=== PATIENT | female | born 1955 | race Caucasian/White ===

== ENCOUNTER 2020-08-12 17:57 | Emergency (ER) | payer BC, OTHER ==
[2020-08-12] MEDS ORDERED: Phenazopyridine 95 MG Tab PO ONE (17:58)
[2020-08-12] MEDS ORDERED: Ciprofloxacin 500 MG Tab PO ONE (17:58)
--- NOTE | 2020-08-12 18:20 | EDM.PDOC ---
ED HPI GENERAL MEDICAL PROBLEM - General Chief Complaint: Genitourinary Problem Stated Complaint: UTI Time Seen by Provider: 08/12/20 18:15 Source of Information: Reports: Patient History Limitations: Reports: No Limitations - History of Present Illness INITIAL COMMENTS - FREE TEXT/NARRATIVE: ED with c/o increased urinary frequency and burning since Friday, No fever, slight chills tonight. Diabetic. - Related Data Allergies Allergy/AdvReac Type Severity Reaction Status Date / Time tape adhesive Allergy Rash Uncoded 08/12/20 18:12 Home Meds: Home Meds metFORMIN [Glucophage] 500 mg PO BIDM 07/08/13 [History] Empagliflozin [Jardiance] 25 mg PO DAILY 08/12/20 [History] Glimepiride 1 mg PO DAILY 08/12/20 [History] Levothyroxine Sodium [Levothyroxine] 75 mcg PO DAILY 08/12/20 [History] Losartan Potassium 25 mg PO DAILY 08/12/20 [History] Pravastatin Sodium 20 mg PO DAILY 08/12/20 [History] dilTIAZem HCL [Diltiazem ER] 180 mg PO DAILY 08/12/20 [History] ED ROS GENERAL - Review of Systems Review Of Systems: Comprehensive ROS is negative, except as noted in HPI. ED EXAM, RENAL/ - Physical Exam Exam: See Below Exam Limited By: No Limitations General Appearance: Alert, No Apparent Distress Eye Exam: Bilateral Eye: EOMI Ears: Normal External Exam Nose: Normal Inspection Throat/Mouth: Normal Inspection Head: Atraumatic, Normocephalic Respiratory/Chest: No Respiratory Distress, Lungs Clear, Normal Breath Sounds Cardiovascular: Normal Peripheral Pulses, Regular Rate, Rhythm GI/Abdominal: Normal Bowel Sounds, Soft Back Exam: No: CVA Tenderness (L), CVA Tenderness (R) Extremities: Normal Inspection Neurological: Alert, Oriented, Normal Cognition Psychiatric: Normal Affect, Normal Mood Skin Exam: Warm, Dry, Intact, Normal Color Course - Vital Signs Last Recorded V/S: Last Vital Signs Temp 97.7 F 08/12/20 18:12 Pulse 90 08/12/20 18:12 Resp 16 08/12/20 18:12 BP 190/80 H 08/12/20 18:12 Pulse Ox 98 08/12/20 18:12 - Orders/Labs/Meds Orders: Active Orders 24 hr Category Date Time Status CULTURE URINE [RM] Stat Lab 08/12/20 18:05 Received Labs: Laboratory Tests 08/12/20 Range/Units 18:05 Urine Color Yellow (YELLOW) Urine Appearance Slightly cloudy (CLEAR) Urine pH 5.5 (5.0-9.0) Ur Specific [place] <= 1.005 (1.005-1.030) Urine Protein Negative (NEGATIVE) Urine Glucose (UA) >=1000 H (NEGATIVE) Urine Ketones Negative (NEGATIVE) Urine Occult Blood Moderate H (NEGATIVE) Urine Nitrite Positive H (NEGATIVE) Urine Bilirubin Negative (NEGATIVE) Urine Urobilinogen 0.2 (0.2-1.0) mg/dL Ur Leukocyte Esterase Small H (NEGATIVE) Urine RBC 0-5 /HPF Urine WBC >100 H (0-5/HPF) /HPF Ur Epithelial Cells Occasional (NOT SEEN) /HPF Departure - Departure Time of Disposition: 18:25 Disposition: Home, Self-Care 01 Condition: Good Clinical Impression: UTI, Urinary tract infectious disease - Discharge Information *PRESCRIPTION DRUG MONITORING PROGRAM REVIEWED*: No *COPY OF PRESCRIPTION DRUG MONITORING REPORT IN PATIENT HAJA: No Instructions: Urinary Tract Infection, Adult, [id number] Forms: ED Department Discharge Additional Instructions: cipro 500mg one twice daily x 5 days pyridium 200mg every 8 hours as needed for bladder spasm increase fluids clinic follow up recheck next week Sepsis Event Note (ED) - Focused Exam Vital Signs: Vital Signs Temp Pulse Resp BP Pulse Ox 08/12/20 18:12 97.7 F 90 16 190/80 H 98 - My Orders Last 24 Hours: My Active Orders 08/12/20 18:05 CULTURE URINE [RM] Stat - Assessment/Plan Last 24 Hours: My Active Orders 08/12/20 18:05 CULTURE URINE [RM] Stat
[2020-08-12] MEDS ORDERED: Ciprofloxacin 500 MG Tab ONE (18:28)
[2020-08-12] MEDS ORDERED: Phenazopyridine 95 MG Tab ONE (18:29)
== END 2020-08-12 18:37 | disposition home or self-care (01) ==
LOC: DL.ED 17:57
DX: N39.0 Urinary tract infection, site not specified (principal); Z91.048 Other nonmedicinal substance allergy status; Z79.84 Long term (current) use of oral hypoglycemic drugs; Z79.899 Other long term (current) drug therapy
CPT/HCPCS: 81001; 87086; 87088; 87186; 99283; A9270

== ENCOUNTER 2022-06-28 05:26 | Day surgery (SDC) | payer MEDICARE, BC ==
[~2022-06-28 05:26] MED LIST: Sodium Chloride 0.9% 10 ML Syringe FLUSH SCH
[2022-06-28] MEDS ORDERED: Midazolam 1 MG/ML 2 ML SDV IV ONE ×7 (05:27→06:55)
[2022-06-28] MEDS ORDERED: fentaNYL 100 MCG/2 ML SDV IV ONE ×4 (05:27→06:56)
[2022-06-28] MEDS ORDERED: Dextrose 5%-0.45% NaCl 1,000 ML IV SCH (06:00)
[2022-06-28] MEDS ORDERED: Sodium Chloride 0.9% 10 ML Syringe FLUSH PRN (06:00)
[2022-06-28] MEDS ORDERED: Midazolam 1 MG/ML 2 ML SDV ONE (06:15)
[2022-06-28] MEDS ORDERED: fentaNYL 100 MCG/2 ML SDV ONE (06:16)
== END 2022-06-28 08:36 | disposition home or self-care (01) ==
LOC: DL.ENDO 05:26
PROVIDERS: ATTEND Internal Medicine Gastroenterology
DX: Z12.11 Encounter for screening for malignant neoplasm of colon (principal); D12.0 Benign neoplasm of cecum; K57.30 Diverticulosis of large intestine without perforation or abscess without bleeding; K64.8 Other hemorrhoids; K64.4 Residual hemorrhoidal skin tags; E11.9 Type 2 diabetes mellitus without complications; I10 Essential (primary) hypertension; E66.09 Other obesity due to excess calories; E03.9 Hypothyroidism, unspecified; E78.5 Hyperlipidemia, unspecified; Z20.822 Contact with and (suspected) exposure to COVID-19; Z68.35 Body mass index [BMI] 35.0-35.9, adult
CPT/HCPCS: 45380; 88305; J2250; J3010; J7042